=== PATIENT | male | born 1985 | race Two or more races ===

== ENCOUNTER 2019-08-14 07:34 | Emergency (ER) | payer SELFPAY ==
[2019-08-14] MEDS ORDERED: Bacitracin Oint 1 GM U/D Packet TOP ONE (07:50)
[2019-08-14] MEDS ORDERED: Acetaminophen 325 MG Tab PO ONE (07:50)
[2019-08-14] MEDS ORDERED: Lidocaine 1% with EPINEPHrine 1:100,000 20 ML MDV INJECT ONE (07:50)
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
[2019-08-14] MEDS ORDERED: Lidocaine/EPINEPHrine/Tetracaine Soln 1 ML TOP ONE (08:56)
== END 2019-08-14 10:25 | disposition home or self-care (01) ==
LOC: MW.ED 07:34
DX: S06.9X9A Unspecified intracranial injury with loss of consciousness of unspecified duration, initial encounter (principal); S52.612A Displaced fracture of left ulna styloid process, initial encounter for closed fracture; S01.01XA Laceration without foreign body of scalp, initial encounter; S01.511A Laceration without foreign body of lip, initial encounter; S01.81XA Laceration without foreign body of other part of head, initial encounter; Y00.XXXA Assault by blunt object, initial encounter; Y93.84 Activity, sleeping
CPT/HCPCS: 12002; 12011; 29125; 70450; 70486; 73110; 99284; A9270